=== PATIENT | female | born 1945 | race Caucasian/White ===

== ENCOUNTER 2020-05-14 06:01 | Day surgery (SDC) | payer OTHER ==
[2020-05-13 08:45] VITALS: BMI 26.4
[2020-05-14] MEDS ORDERED: LIDOCAINE HCL 1% PRESERVATIVE FREE - 30ML VIAL IJ ONE (09:20)
[2020-05-14] MEDS ORDERED: IOHEXOL 180 MG/1 ML ML IJ ONE (09:20)
[2020-05-14] MEDS ORDERED: TRIAMCINOLONE ACETONIDE 40 MG/ML 10 ML VIAL IJ ONE (09:20)
[2020-05-14] MEDS ORDERED: BUPIVACAINE HCL/PF 0.5% (5MG/ML) 10 ML VIAL IJ ONE (09:20)
[2020-05-14 09:41] VITALS: BP 154/83; PULSE 63; TEMP 98.2
== END 2020-05-14 11:15 | disposition home or self-care (01) ==
LOC: JASU-SURG 06:01
PROVIDERS: ATTEND Pain Medicine Pain Medicine
PROC: BQ10YZZ Fluoroscopy of Right Hip using Other Contrast (ICD-10-PCS; 2020-05-14)
PROC: 3E0U3GC Introduction of Other Therapeutic Substance into Joints, Percutaneous Approach (ICD-10-PCS; principal; 2020-05-14 09:30)
DX: M16.11 Unilateral primary osteoarthritis, right hip (principal)
CPT/HCPCS: 76000-TC-FY

== ENCOUNTER 2020-11-02 03:30 | Emergency (ER) | payer OTHER ==
[2020-11-02 03:48] VITALS: BP 152/82; PULSE 73; TEMP 99.5; BMI 26.9
[2020-11-02] MEDS ORDERED: ACETAMINOPHEN 325 MG TABLET (FP) PO ONE (04:02)
[2020-11-02 04:47] LABS: EPI CELLS 4 /uL (0-25.1); HYALINE CASTS 3 /uL (0-3.1); URINE APPEARANCE TURBID; URINE BACTERIA 976 /uL (0-1359); URINE BILIRUBIN NEGATIVE (NEGATIVE); URINE COLOR YELLOW; URINE GLUCOSE (UA) NEGATIVE (NEGATIVE); URINE KETONE NEGATIVE (NEGATIVE); URINE LEUK ESTERASE 3+ (NEGATIVE); URINE NITRITE NEGATIVE (NEGATIVE); URINE PROTEIN 2+ (NEGATIVE); URINE RBC 2219 /uL (0-23.9); URINE WBC 9607 /uL (0-25.8)
[2020-11-02] MEDS ORDERED: ACETAMINOPHEN 325 MG TABLET (FP) ONE (04:58)
[2020-11-02 05:26] LABS: BASO % 0.2 % (0-2.0); EOS % 1.6 % (0-4.5); HEMATOCRIT 33.4 % (32.4-45.2); HEMOGLOBIN 11.3 GM/dL (10.7-15.3); LYMPH % 13.8 % (8-40); MCHC 33.7 g/dl (32.0-36.0); MEAN CELL VOLUME 86.1 fl (80-96); MEAN PLT VOLUME 8.5 fl (7.5-11.1); MONO % 9.4 % (3.8-10.2); PLATELET COUNT 195 K/MM3 (134-434); RBC 3.88 M/mm3 (3.60-5.2); RDW 13.3 % (11.6-15.6); WHITE BLOOD COUNT 9.7 K/mm3 (4.0-10.0)
[2020-11-02 05:30] LABS: CHLORIDE 100 mmol/L (98-107); SODIUM 135 mmol/L (136-145)
[2020-11-02] MEDS ORDERED: CEFTRIAXONE 1 GM/50 ML BAG ONE (05:31)
[2020-11-02 05:32] LABS: ALBUMIN 3.5 g/dl (3.4-5.0); ANION GAP 7 MMOL/L (8-16); CALCIUM 8.8 mg/dL (8.5-10.1); CO2 28 mmol/L (21-32); LIPASE 205 U/L (73-393)
[2020-11-02 05:33] LABS: BLOOD UREA NITROGEN 11.5 mg/dL (7-18); GLUCOSE,RANDOM 92 mg/dL (74-106); MAGNESIUM 1.9 mg/dL (1.8-2.4)
[2020-11-02 05:35] LABS: CREATININE 0.6 mg/dL (0.55-1.3); SGOT/AST 19 U/L (15-37); SGPT/ALT 19 U/L (13-61)
[2020-11-02 05:37] LABS: BILIRUBIN,TOTAL 0.6 mg/dL (0.2-1); TOT PROT 6.5 g/dl (6.4-8.2)
[2020-11-02 05:38] LABS: ALK PHOS 65 U/L (45-117)
== END 2020-11-02 06:52 | disposition home or self-care (01) ==
LOC: JER 03:30
DX: N39.0 Urinary tract infection, site not specified (principal)
CPT/HCPCS: 36415; 74177-TC; 80053; 81003; 83605; 83690; 83735; 84484; 85025; 87086; 87186; 93005; 93010; 99285-25; C9803; Q9967; U0003; U0005

== ENCOUNTER 2020-11-22 09:06 | Inpatient (IN) | payer OTHER ==
[2020-11-16 09:46] VITALS: BMI 24.6
[2020-11-22] MEDS ORDERED: MIDAZOLAM HCL 2 MG/2 ML SINGLE DOSE VIAL ONE (13:02)
[2020-11-22] MEDS ORDERED: BUPIVACAINE LIPOSOME/PF (EXPAREL) 266 MG/20 ML VIAL ONE (13:02)
[2020-11-22] MEDS ORDERED: SODIUM CHLORIDE 0.9% P/F 10 ML VIAL IJ ONE (13:02)
[2020-11-22] MEDS ORDERED: BUPIVACAINE HCL 50 ML ONE ×2 (13:02→13:39)
[2020-11-22] MEDS ORDERED: ONDANSETRON 4 MG/2 ML VIAL ONE (13:55)
[2020-11-22] MEDS ORDERED: ceFAZolin SODIUM 1 GM VIAL ONE (13:55)
[2020-11-22] MEDS ORDERED: DEXAMETHASONE SOD PHOSPHATE 4 MG/1 ML VIAL ONE (13:55)
[2020-11-22] MEDS ORDERED: TRANEXAMIC ACID 1000 MG/10 ML VIAL ONE ×2 (13:55→15:35)
[2020-11-22] MEDS ORDERED: EPHEDRINE SULFATE/0.9% NACL/PF 50 MG/10 ML SYRINGE NR ONE (14:11)
[2020-11-22] MEDS ORDERED: VANCOMYCIN 1,000 MG VIAL (RESTRICTED TO ID ONLY) ONE (14:38)
[2020-11-22] MEDS ORDERED: BUPIVICAINE 0.25%/MORPH PF/KETOROLAC - 51ML DISP.SYRINGE IA ONE ×2 (15:03→15:45)
[2020-11-22] MEDS ORDERED: MAG HYDROX/AL HYDROX/SIMETH 30 ML UNIT-DOSE CUP PO PRN (16:22)
[2020-11-22] MEDS ORDERED: ONDANSETRON 4 MG/2 ML VIAL IVPUSH PRN ×2 (16:22→16:41)
[2020-11-22] MEDS ORDERED: LACTATED RINGERS SOLUTION 1,000 ML IV SCH (16:30)
[2020-11-22] MEDS ORDERED: traMADol HCL 50 MG TABLET PO PRN (16:41)
[2020-11-22] MEDS ORDERED: oxyCODONE HCL 5 MG TABLET PO PRN (16:41)
[2020-11-22] MEDS: oxyCODONE HCL 5 MG TABLET PO PRN (21:30)
[2020-11-22] MEDS: SENNOSIDES/DOCUSATE COMBO (SENNA PLUS) TABLET (UD) PO SCH (21:30)
[2020-11-22] MEDS: GABAPENTIN 300 MG CAPSULE PO SCH (21:30)
[2020-11-22] MEDS: CEFAZOLIN 2 GM/D5W 2 GM/50 ML ML IVPB SCH (23:14)
[2020-11-23] MEDS: CEFAZOLIN 2 GM/D5W 2 GM/50 ML ML IVPB SCH ×2 (06:32→14:42)
[2020-11-23 07:58] LABS: HEMATOCRIT 28.3 % (32.4-45.2); HEMOGLOBIN 9.8 GM/dl (10.7-15.3); MCH 29.9 pg (25.7-33.7); MCHC 34.4 g/dl (32.0-36.0); MEAN CELL VOLUME 86.7 fl (80-96); MEAN PLT VOLUME 8.3 fl (7.5-11.1); PLATELET COUNT 170 10^3/uL (134-434); RBC 3.27 M/mm3 (3.60-5.2); RDW 13.2 % (11.6-15.6); WHITE BLOOD COUNT 9.3 K/mm3 (4.0-10.8)
[2020-11-23 08:10] LABS: CALCIUM 8.2 mg/dl (8.5-10); CREATININE 0.8 mg/dl (0.55-1.3)
[2020-11-23] MEDS: PANTOPRAZOLE 40 MG TABLET PO SCH (10:06)
[2020-11-23] MEDS: ASPIRIN 325 MG TABLET PO SCH ×2 (10:06→21:27)
[2020-11-23] MEDS: SENNOSIDES/DOCUSATE COMBO (SENNA PLUS) TABLET (UD) PO SCH ×2 (10:06→21:28)
[2020-11-23] MEDS: MULTIVITAMINS (DAILY MVI) TABLET (FP) PO SCH (10:06)
[2020-11-23] MEDS: GABAPENTIN 300 MG CAPSULE PO SCH ×2 (10:06→21:28)
[2020-11-23] MEDS: oxyCODONE HCL 5 MG TABLET PO PRN (21:29)
[2020-11-23] MEDS ORDERED: FLUoxetine HCL 20 MG CAPSULE PO SCH (22:00)
[2020-11-24] MEDS ORDERED: LEVOTHYROXINE NA 25 MCG TABLET (FP) PO SCH (07:00)
[2020-11-24 08:17] LABS: HEMATOCRIT 25.3 % (32.4-45.2); HEMOGLOBIN 8.4 GM/dl (10.7-15.3); MCHC 33.4 g/dl (32.0-36.0); MEAN PLT VOLUME 7.8 fl (7.5-11.1); PLATELET COUNT 151 10^3/uL (134-434); RDW 13.3 % (11.6-15.6); WHITE BLOOD COUNT 8.2 K/mm3 (4.0-10.8)
[2020-11-24 09:15] VITALS: BP 115/43; PULSE 87; TEMP 99.8
[2020-11-24] MEDS: ASPIRIN 325 MG TABLET PO SCH (09:21)
[2020-11-24] MEDS: MULTIVITAMINS (DAILY MVI) TABLET (FP) PO SCH (09:21)
[2020-11-24] MEDS: GABAPENTIN 300 MG CAPSULE PO SCH (09:22)
[2020-11-24] MEDS: PANTOPRAZOLE 40 MG TABLET PO SCH (09:23)
[2020-11-24] MEDS: SENNOSIDES/DOCUSATE COMBO (SENNA PLUS) TABLET (UD) PO SCH (09:23)
[2020-11-24] MEDS ORDERED: metoPROLOL SUCCINATE 25 MG TAB.SR.24H (FP) PO SCH (10:00)
[2020-11-24] MEDS ORDERED: LOSARTAN POTASSIUM 50 MG TABLET PO SCH (10:00)
== END 2020-11-24 11:23 | disposition home health service (06) | DRG 302 ==
LOC: FM/S 09:06
PROVIDERS: ADMIT Orthopaedic Surgery Sports Medicine; ATTEND Nurse Practitioner Acute Care
PROC: 0SRC0JZ Replacement of Right Knee Joint with Synthetic Substitute, Open Approach (ICD-10-PCS; principal; 2020-11-22 14:29)
DX: M17.11 Unilateral primary osteoarthritis, right knee (principal); I25.10 Atherosclerotic heart disease of native coronary artery without angina pectoris; K21.9 Gastro-esophageal reflux disease without esophagitis; E03.9 Hypothyroidism, unspecified; M81.0 Age-related osteoporosis without current pathological fracture; I11.0 Hypertensive heart disease with heart failure; I50.32 Chronic diastolic (congestive) heart failure
CPT/HCPCS: 36415; 73560-TC-RT-FY; 80048; 85027; 88305-TC; 88311-TC; 94760; 97010-GP; 97116-GP; 97161-GP; C9803; U0003; U0005

== ENCOUNTER 2023-10-24 10:32 | Day surgery (SDC) | payer OTHER ==
[2023-10-22 14:41] VITALS: BMI 24.4
[2023-10-24] MEDS ORDERED: TETRACAINE 0.5% OPHTH SOLN 2 ML BOTTLE ONE (10:38)
[2023-10-24] MEDS ORDERED: NEO/POLYMYX B SULF/DEXAMETH OPHTHALMIC 5ML BOTTLE ONE (10:38)
[2023-10-24] MEDS ORDERED: LIDOCAINE 1% P/F 10 MG/ML VIAL ONE (10:38)
[2023-10-24] MEDS ORDERED: BSS (NA/CA/MG/K) BALANCED SALT SOLUTION OPHTH SOLN 15 ML BOTTLE ONE (10:38)
[2023-10-24] MEDS ORDERED: CARBACHOL 0.01% INTRA-OCULAR 1.5 ML VIAL ONE (10:38)
[2023-10-24] MEDS ORDERED: TROPICAMIDE 1% OPHTH SOLN 15 ML BOTTLE ONE (10:42)
[2023-10-24] MEDS ORDERED: PHENYLEPHRINE 2.5% OPTHALMIC DROP 2ML BOTTLE ONE (10:42)
[2023-10-24] MEDS ORDERED: CIPROFLOXACIN 0.3% EYE DROPS 5 ML BOTTLE ONE (10:42)
[2023-10-24] MEDS ORDERED: CYCLOPENTOLATE 2% OPHTH SOLN 2 ML BOTTLE ONE (10:42)
[2023-10-24] MEDS: TROPICAMIDE 1% OPHTH SOLN 15 ML BOTTLE OD ONE ×4 (11:00→11:10)
[2023-10-24] MEDS: CIPROFLOXACIN 0.3% EYE DROPS 5 ML BOTTLE OD ONE ×3 (11:00→11:10)
[2023-10-24] MEDS: CYCLOPENTOLATE 2% OPHTH SOLN 2 ML BOTTLE OD ONE ×3 (11:00→11:10)
[2023-10-24] MEDS: PHENYLEPHRINE 2.5% OPHTH SOLN 15 ML BOTTLE OD ONE ×2 (11:00→11:05)
[2023-10-24] MEDS ORDERED: MIDAZOLAM HCL 2 MG/2 ML SINGLE DOSE VIAL ONE (13:06)
[2023-10-24] MEDS ORDERED: ONDANSETRON 4 MG/2 ML VIAL ONE (13:06)
[2023-10-24 13:54] VITALS: PULSE 59; TEMP 97.3
[2023-10-24 14:01] VITALS: BP 139/54
[2023-10-24 15:03] VITALS: RESP 19
== END 2023-10-24 14:50 | disposition home or self-care (01) ==
LOC: FASU 10:32
PROVIDERS: ATTEND Ophthalmology
PROC: 08RJ3JZ Replacement of Right Lens with Synthetic Substitute, Percutaneous Approach (ICD-10-PCS; principal; 2023-10-24 13:01)
DX: H26.8 Other specified cataract (principal)
CPT/HCPCS: 66984; V2632

== ENCOUNTER 2024-04-16 11:00 | Day surgery (SDC) | payer OTHER ==
[2024-04-16] MEDS ORDERED: CARBACHOL 0.01% INTRA-OCULAR 1.5 ML VIAL ONE (11:14)
[2024-04-16] MEDS ORDERED: NEO/POLYMYX B SULF/DEXAMETH OPHTHALMIC 5ML BOTTLE ONE (11:14)
[2024-04-16] MEDS ORDERED: TETRACAINE 0.5% OPHTH SOLN 2 ML BOTTLE ONE (11:14)
[2024-04-16] MEDS ORDERED: BSS (NA/CA/MG/K) BALANCED SALT SOLUTION OPHTH SOLN 15 ML BOTTLE ONE (11:14)
[2024-04-16] MEDS ORDERED: LIDOCAINE 1% P/F 10 MG/ML VIAL ONE (11:14)
[2024-04-16 12:05] VITALS: BMI 24.4
[2024-04-16] MEDS: CIPROFLOXACIN 0.3% EYE DROPS 5 ML BOTTLE ONE (12:20)
[2024-04-16] MEDS: PHENYLEPHRINE 2.5% OPTHALMIC DROP 2ML BOTTLE ONE (12:20)
[2024-04-16] MEDS: TROPICAMIDE 1% OPHTH SOLN 15 ML BOTTLE ONE (12:20)
[2024-04-16] MEDS: CYCLOPENTOLATE 2% OPHTH SOLN 2 ML BOTTLE ONE (12:20)
[2024-04-16] MEDS ORDERED: MIDAZOLAM HCL 2 MG/2 ML SINGLE DOSE VIAL ONE (13:51)
[2024-04-16 14:37] VITALS: RESP 18; TEMP 97.7
[2024-04-16 14:39] VITALS: BP 140/79; PULSE 66
== END 2024-04-16 14:45 | disposition home or self-care (01) ==
LOC: FASU 11:00
PROVIDERS: ATTEND Ophthalmology
PROC: 08RK3JZ Replacement of Left Lens with Synthetic Substitute, Percutaneous Approach (ICD-10-PCS; principal; 2024-04-16 13:56)
DX: H26.8 Other specified cataract (principal)
CPT/HCPCS: 66984; V2632